=== PATIENT | female | born 1975 | race Caucasian/White ===

== ENCOUNTER 2020-04-13 09:14 | Emergency (ER) | payer MEDICAID ==
[~2020-04-13] VITALS: Ht 160 cm; Wt 118.8 kg
[~2020-04-13 09:14] MED LIST: HYDR-3241 PO; NORE1TAB85 PO
[2020-04-13 09:16] VITALS: BP 167/83
[2020-04-13] MEDS ORDERED: FLUORESCEIN OPHTHALMIC 1 MG STRIP ONE (09:26)
[2020-04-13] MEDS ORDERED: PROPARACAINE OPHTH 0.5%, 15ML ONE (09:26)
[2020-04-13] MEDS ORDERED: FLUORESCEIN OPHTHALMIC 1 MG STRIP EACHEYE ONE (09:30)
[2020-04-13] MEDS ORDERED: PROPARACAINE OPHTH 0.5%, 15ML EACHEYE ONE (09:30)
== END 2020-04-13 10:27 | disposition home or self-care (01) ==
LOC: ED 09:26
DX: H10.32 Unspecified acute conjunctivitis, left eye (principal)
CPT/HCPCS: 99283